=== PATIENT | female | born 1980 | race Caucasian/White ===

== ENCOUNTER 2018-11-29 19:25 | Emergency (ER) | payer OTHER ==
[~2018-11-29] VITALS: Ht 170.2 cm; Wt 86.2 kg
[~2018-11-29 19:25] MED LIST: HC30CR25 TOP; HYDR-845 PO; MED4DP PO
[2018-11-29 19:27] VITALS: BP 127/75; PULSE 89; RESP 16; Ht 170.2 cm; Wt 86.2 kg
--- NOTE | 2018-11-29 19:55 | ERD ---
ER Documentation Chief Complaint Chief Complaint RASH IN BOTH HANDS X 2 WEEKS. HPI Patient is a 38 years old female with no known past medical history presenting to the clinic for palmar rash X 3 weeks. Patient reports of having a small blister appearing on her bilateral palms 2 weeks ago which has turned erythemat ous with skin peeling. Patient admits to pain on touch when skin peels off and admits to severe pruritus. Patient denies fever, chills, night sweats, pus drainage. Reports the rash is red as of now. Patient admits to going to an urgent care 10 days ago and was given Bactrim DS and Neosporin without resolution of symptoms. Patient reports that she has an upcoming PCP casimiro MCGARRY All systems reviewed and are negative except as per history of present illness. Medications Home Meds Active Scripts Hydrocortisone* Topical (Hydrocortisone* Topical) 2.5%-28.3 Gm Cream..g., 1 A PPLIC TOP BID, #1 TUB Prov:MARILUZ FINE PA-C 11/29/18 Hydroxyzine Hcl* (Atarax*) 50 Mg Tab, 50 MG PO Q8H PRN for ITCHING for 7 Days, #21 TAB Prov:MARILUZ FINE PA-C 11/29/18 Methylprednisolone* (Medrol* DOSE PACK) 4 Mg/Dose-Pack Tab.ds.pk, 4 MG PO . DIRECTED for 5 Days, PACKET Prov:MARILUZ FINE PA-C 11/29/18 Allergies Allergies: Coded Allergies: No Known Allergy (Unverified , 11/29/18) PMhx/Soc History of Surgery: No Anesthesia Reaction: No Hx Neurological Disorder: No Hx Respiratory Disorders: No Hx Cardiac Disorders: No Hx Psychiatric Problems: No Hx Miscellaneous Medical Probl: No FmHx Family History: No diabetes, No coronary disease, No other Physical Exam Vitals Vital Signs Date Temp Pulse Resp B/P (MAP) Pulse Ox O2 O2 Flow FiO2 Time Delivery Rate 11/29/18 96.3 89 16 127/75 99 19:27 (92) Physical Exam Const: No acute distress Head: Atraumatic Resp: Clear to auscultation bilaterally Cardio: Regular rate and rhythm, no murmurs Abd: Soft, non tender, non distended. Normal bowel sounds Skin: Single erythematous rash with small multiple blisters on left palmar area. Outer skin from left palm area seems to have removed. Small multiple blister noted on right palmar hand with skin peeling noted without erythema. Induration noted bilaterally, satellite lesions, discharge, bullae. Psych: Normal Mood and Affect Results 24 hrs Current Medications Medications Dose Sig/Arabella Start Time Status Last (Trade) Ordered Route PRN Stop Time Admin Dose Reason Admin 125 mg ONCE ONCE 11/29/18 Methylprednis IM 20:00 11/29/18 olone Sodium 20:01 Succinate (Solu-Medrol) Procedures/MDM Patient was seen and evaluated for rash X 3 weeks. Patient rash seems to be viral with eczematous skin reaction (possible dermatitis). No obvious signs of cellulitis, TEN, Tinea. Solu-Medrol IM administered in ED with significant improvement of symptoms. Patient is stable and ready for discharge. Follow-up with PCP. Patient was advised to avoid scratching rash. Departure Diagnosis: Primary Impression: Rash and other nonspecific skin eruption Condition: Stable Patient Instructions: Self-Care for Skin Rashes Referrals: [facility] Additional Instructions: Patient advised to return to the ED immediately for new or worsening symptoms. Patient advised to follow up with primary care provider in the next 24-48 hours. Patient verbalized understanding and agrees with treatment plan and course of action. If patient has no primary care they may follow up with [facility] [address] [place] [id number] or [facility] [address] [place] [address] or [facility] [address] [place] [id number] MARILUZ FINE PA-C Nov 29, 2018 19:55
[2018-11-29] MEDS: METHYLPREDNISOLONE 125 MG INJ IM ONE ×2 (19:56→20:03)
== END 2018-11-29 20:13 | disposition home or self-care (01) ==
LOC: FTE 19:25
DX: R21 Rash and other nonspecific skin eruption (principal)
CPT/HCPCS: 96372; J2930; Z7502

== ENCOUNTER 2018-12-10 21:53 | Emergency (ER) | payer OTHER ==
[~2018-12-10] VITALS: Ht 165.1 cm; Wt 84.3 kg
[2018-12-10 21:58] VITALS: BP 129/77; PULSE 86; RESP 16; Ht 165.1 cm; Wt 84.3 kg
== END 2018-12-10 23:24 | disposition home or self-care (01) ==
LOC: FTE 21:53
DX: R21 Rash and other nonspecific skin eruption (principal); F17.210 Nicotine dependence, cigarettes, uncomplicated
CPT/HCPCS: 99283